=== PATIENT | female | born 1995 | race Two or more races ===

== ENCOUNTER 2017-10-23 03:20 | Emergency (ER) | payer SELFPAY ==
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
[2017-10-23 08:37] VITALS: BP 128/64
[2017-10-23 10:00] LABS: BACTERIA (WET MOUNT) 3+ BACTERIA SEEN; T.VAGINALIS (WET MOUNT) COULD NOT PERFORM; WBCS (WET MOUNT) 3+ WBCS SEEN; YEAST (WET MOUNT) NO YEAST SEEN
[2017-10-23 10:57] LABS: CHLAM PCR NOT DETECTED (NOT DETECT); GON PCR NOT DETECTED (NOT DETECT)
== END 2017-10-23 07:10 | disposition home or self-care (01) ==
LOC: ER 03:20
DX: T74.21XA Adult sexual abuse, confirmed, initial encounter (principal); Y07.59 Other non-family member, perpetrator of maltreatment and neglect; Y92.009 Unspecified place in unspecified non-institutional (private) residence as the place of occurrence of the external cause
CPT/HCPCS: 87210; 87491; 87591; 99285

== ENCOUNTER 2018-06-22 13:57 | Outpatient (CLI) | payer BC ==
[2018-06-22 14:56] LABS: BACTERIA (WET MOUNT) 4+ BACTERIA SEEN; RBCS (WET MOUNT) NO RBCS SEEN; T.VAGINALIS (WET MOUNT) NO TRICHOMONAS SEEN; WBCS (WET MOUNT) 4+ WBCS SEEN; YEAST (WET MOUNT) NO YEAST SEEN
[2018-06-22 15:07] LABS: APPEARANCE,URINE TURBID; BILIRUBIN,URINE NEGATIVE (NEGATIVE); COLOR,URINE YELLOW; GLUCOSE, URINE 150 mg/dL (NEGATIVE); KETONES,URINE NEGATIVE (NEGATIVE); LEUKOCYTE ESTERASE,URINE LARGE (NEGATIVE); NITRITE,URINE NEGATIVE (NEGATIVE); PROTEIN,URINE 100 mg/dL (NEGATIVE); URINE SPECIFIC GRAVITY 1.024; UROBILINOGEN,URINE NEGATIVE mg/dL (<2.0)
[2018-06-22 15:12] LABS: URINE AMPHETAMINES SCREEN NEGATIVE; URINE BARBITURATES SCREEN NEGATIVE; URINE BENZODIAZEPINES SCREEN NEGATIVE; URINE COCAINE SCREEN NEGATIVE; URINE MARIJUANA (THC) SCREEN NEGATIVE; URINE METHADONE SCREEN NEGATIVE; URINE PHENCYCLIDINE SCREEN NEGATIVE
[2018-06-22 16:21] LABS: CHLAM PCR DETECTED (NOT DETECT); GON PCR NOT DETECTED (NOT DETECT)
[2018-06-22] MEDS ORDERED: AZITHROMYCIN 250 MG TABLET PO ONE (16:48)
[2018-06-22] MEDS ORDERED: LIDOCAINE 1% INJ-PF (10 MG/ML) 30 ML SDV INJ ONE (16:48)
[2018-06-22] MEDS ORDERED: CEFTRIAXONE INJ 250 MG VIAL IM ONE (16:48)
--- NOTE | 2018-06-22 17:00 | RADIOLOGY REPORT (SQ) ---
EXAM DESCRIPTION: U/S OB 14+ TRNABD 1GES W/O DOP COMPLETED DATE/TIME: 06/22/2018 4:16 pm REASON FOR STUDY: vaginal bleeding COMPARISON: None. TECHNIQUE: Static and Dynamic grayscale imaging performed of gravid uterus using transabdominal appr oac. Additional selected color Doppler and spectral images recorded. All stored on PACS. LIMITATIONS: None. FINDINGS: FETUSES SEEN:1 EGA: 21 weeks 5 days Calculated using BPD,FL,HC,AC documented on images. No discrepancy with clinica l dates. NEREYDA: 10/28/2018 EFW: 430 grams PERCENTILE: Not calculated MARQUISE: Largest pocket 3.7 cm PLACENTA: Posterior fundal grade 1 PRESENTATION: Variable ANATOMY: HEART RATE: 132 beats per minute. FOUR CHAMBER HEART: Visualized. THREE VESSEL CORD: Yes. CORD INSERTION: Visualized. KIDNEYS AND BLADDER: Visualized. Appear normal. STOMACH: Visualized. Appears normal. SPINE: Normal as visualized. BRAIN AND LATERAL VENTRICLES: Visualized. Appear normal. OTHER: No other significant finding. MATERNAL ADNEXA: Maternal ovaries not visualized. CERVICAL LENGTH: 3.7 cm Closed. OTHER: No other significant finding. IMPRESSION: LIVING INTRAUTERINE . ESTIMATED GESTATIONAL AGE 21 weeks 5 days NO VISUALIZED ANOMALIES. Trimester of : Second trimester - 13 weeks 1 day to 27 weeks 6 days. TECHNICAL DOCUMENTATION: JOB ID: [id number] [employer]- All Rights Reserved Reading location - IP/workstation name: [email or web address]
[2018-06-22] MEDS ORDERED: CEFTRIAXONE INJ 1000 MG VIAL ONE (17:56)
[2018-06-22] MEDS ORDERED: LIDOCAINE 1% INJ-PF (10 MG/ML) 30 ML SDV ONE (17:57)
[2018-06-22] MEDS ORDERED: AZITHROMYCIN 250 MG TABLET ONE (17:57)
== END 2018-06-22 18:36 | disposition home or self-care (01) ==
LOC: LC 13:57
PROVIDERS: ATTEND Obstetrics & Gynecology
DX: O26.852 Spotting complicating pregnancy, second trimester (principal); Z3A.21 21 weeks gestation of pregnancy
CPT/HCPCS: 59025; 86900; 86901; 36415; 87210; 86850; 81001; 80307; 87491; 87591; 76805; J3490; J0696

== ENCOUNTER 2018-10-05 16:38 | Outpatient (CLI) | payer MEDICAID ==
[2018-10-05] MEDS ORDERED: ACETAMINOPHEN WITH CODEINE #3 TABLET PO ONE (17:21)
[2018-10-05] MEDS ORDERED: HYDROXYZINE PAMOATE 50 MG CAPSULE PO ONE (17:22)
[2018-10-05] MEDS ORDERED: ACETAMINOPHEN 325 MG TABLET ONE (17:25)
[2018-10-05] MEDS ORDERED: HYDROXYZINE PAMOATE 50 MG CAPSULE ONE (17:25)
[2018-10-05 17:56] LABS: APPEARANCE,URINE SLIGHTLY-CLOUDY; BILIRUBIN,URINE NEGATIVE (NEGATIVE); COLOR,URINE YELLOW; GLUCOSE, URINE 50 mg/dL (NEGATIVE); KETONES,URINE 20 mg/dL (NEGATIVE); LEUKOCYTE ESTERASE,URINE NEGATIVE (NEGATIVE); NITRITE,URINE NEGATIVE (NEGATIVE); PROTEIN,URINE 30 mg/dL (NEGATIVE); URINE SPECIFIC GRAVITY 1.025; UROBILINOGEN,URINE NEGATIVE mg/dL (<2.0)
[2018-10-05 18:37] LABS: URINE AMPHETAMINES SCREEN NEGATIVE; URINE BARBITURATES SCREEN NEGATIVE; URINE BENZODIAZEPINES SCREEN NEGATIVE; URINE COCAINE SCREEN NEGATIVE; URINE MARIJUANA (THC) SCREEN NEGATIVE; URINE METHADONE SCREEN NEGATIVE; URINE PHENCYCLIDINE SCREEN NEGATIVE
--- NOTE | 2018-10-05 20:06 | Non Stress Test Report ---
Non Stress Test Datetime Report Generated by CPN: 10/05/2018 20:06 DEMOGRAPHIC EGA NST: 36.5 INDICATION Indication for Study: Ordered by Provider MONITORING Monitor Explained: Monitor Explained; Test Explained; Patient Verbalized Understanding Time on Monitor: 10/05/2018 16:30 Time off Monitor: 10/05/2018 19:55 NST Duration: 205 NST INTERVENTIONS NST Interventions: PO Hydration Physician Notified NST: Dr. Gross BABY A: [id number] BABY A Movement : Present Contraction Frequency : 1-4 FHR Baseline : 130 Accelerations : 15X15 Decelerations : None Variability : Moderate 6-25bpm NST Review: Meets Criteria for Reactive NST NST Review and Verified By : Domingo Lau RN NST Results: Reactive NST REPORT Report Trigger: Send Report
== END 2018-10-05 20:30 | disposition home or self-care (01) ==
LOC: LC 16:38
PROVIDERS: ATTEND Obstetrics & Gynecology
PROC: 4A1HXCZ Monitoring of Products of Conception, Cardiac Rate, External Approach (ICD-10-PCS; principal; 2018-10-05)
DX: O47.03 False labor before 37 completed weeks of gestation, third trimester (principal); O99.283 Endocrine, nutritional and metabolic diseases complicating pregnancy, third trimester; E86.0 Dehydration; Z3A.36 36 weeks gestation of pregnancy
CPT/HCPCS: 59025; 81005; 80307; J3490 ×2

== ENCOUNTER 2018-11-05 23:02 | Inpatient (IN) | payer MEDICAID ==
[2018-11-05 23:26] LABS: APPEARANCE,URINE CLOUDY; BILIRUBIN,URINE NEGATIVE (NEGATIVE); COLOR,URINE RED; GLUCOSE, URINE NEGATIVE (NEGATIVE); KETONES,URINE NEGATIVE (NEGATIVE); LEUKOCYTE ESTERASE,URINE LARGE (NEGATIVE); NITRITE,URINE NEGATIVE (NEGATIVE); PROTEIN,URINE NEGATIVE (NEGATIVE); URINE SPECIFIC GRAVITY 1.013; UROBILINOGEN,URINE NEGATIVE mg/dL (<2.0)
[2018-11-05] MEDS ORDERED: RINGERS SOLUTION,LACTATED 1,000 ML IV PRN (23:28)
[2018-11-05 23:40] LABS: URINE AMPHETAMINES SCREEN NEGATIVE; URINE BARBITURATES SCREEN NEGATIVE; URINE BENZODIAZEPINES SCREEN NEGATIVE; URINE COCAINE SCREEN NEGATIVE; URINE MARIJUANA (THC) SCREEN NEGATIVE; URINE METHADONE SCREEN NEGATIVE
[2018-11-05 23:44] LABS: URINE PHENCYCLIDINE SCREEN NEGATIVE
[2018-11-05 23:52] LABS: ABSOLUTE BASOPHILS # (AUTO) 0.1 10^3/uL (0.0-0.2); ABSOLUTE EOSINOPHILS # (AUTO) 0.1 10^3/uL (0.0-0.6); ABSOLUTE LYMPHOCYTES (AUTO) 2.1 10^3/uL (0.5-4.7); ABSOLUTE MONOCYTES (AUTO) 0.7 10^3/uL (0.1-1.4); ABSOLUTE NEUT (AUTO) 6.8 10^3/uL (1.7-8.2); BASOPHILS % (AUTO) 0.8 % (0-2); EOSINOPHILS % (AUTO) 0.6 % (0-6); HEMATOCRIT 31.4 % (36.0-47.0); HEMOGLOBIN 10.4 g/dL (12.0-15.5); LYMPHOCYTES % (AUTO) 21.6 % (13-45); MEAN CORPUSCULAR HEMOGLOBIN 24.7 pg (27.0-33.4); MEAN CORPUSCULAR HGB CONC 33.2 g/dL (32.0-36.0); MEAN CORPUSCULAR VOLUME 74 fl (80-97); PLATELET COUNT 329 10^3/uL (150-450); RED BLOOD COUNT 4.23 10^6/uL (3.72-5.28); RED CELL DISTRIBUTION WIDTH 17.2 % (11.5-14.0); TOTAL CELLS COUNTED % (AUTO) 100 %; WHITE BLOOD COUNT 9.7 10^3/uL (4.0-10.5)
[2018-11-05] MEDS ORDERED: MISOPROSTOL 0.2 MG TABLET ONE (23:54)
[2018-11-05] MEDS ORDERED: OXYTOCIN 10 UNIT/ML VIAL ONE (23:54)
[2018-11-05] MEDS ORDERED: FENTANYL CITRATE INJ/PF 100 MCG/2 ML AMPUL ONE (23:55)
[2018-11-05] MEDS ORDERED: BUPIVACAINE HCL 0.25 % INJ/PF (2.5 MG/1 ML) 30 ML VIAL ONE (23:55)
[2018-11-05] MEDS ORDERED: PHENYLEPHRINE HCL INJ/PF 10 MG/1 ML SDV ONE (23:55)
[2018-11-05] MEDS ORDERED: OXYTOCIN/NORMAL SALINE 20 UNIT/1,000 ML RTUINJ ONE (23:55)
[2018-11-05] MEDS ORDERED: FENTANYL/BUPIVACAINE/NS/PF 300 MCG/150 ML RTUINJ EPI ONE (23:55)
[2018-11-05] MEDS ORDERED: LIDOCAINE 1% INJ-PF (10 MG/ML) 30 ML SDV ONE (23:55)
[2018-11-05] MEDS ORDERED: EPHEDRINE SULFATE INJ 50 MG/1 ML AMPULE ONE (23:55)
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
[2018-11-06] MEDS ORDERED: LIDOCAINE 2%/EPINEPHRINE INJ 20 ML VIAL ONE (08:07)
[2018-11-06] MEDS ORDERED: FENTANYL/BUPIVACAINE/NS/PF 300 MCG/150 ML RTUINJ EPI ONE (10:43)
[2018-11-06] MEDS ORDERED: DIPH/PERTUSS(ACELL)/TETANUS VAC/PF 0.5 ML SYR (>=10YO) IM PRN (13:21)
[2018-11-06] MEDS ORDERED: MEASLES,MUMPS&RUBELLA VACC/PF 0.5 ML VIAL SUBCUT PRN (13:21)
[2018-11-06] MEDS ORDERED: BENZOCAINE/MENTHOL AEROSOL SPRAY 56 ML TOP PRN (13:21)
[2018-11-06] MEDS ORDERED: OXYTOCIN/NORMAL SALINE 20 UNIT/1,000 ML RTUINJ IV PRN (13:21)
[2018-11-06] MEDS ORDERED: ZOLPIDEM TARTRATE 5 MG TABLET PO PRN (13:21)
[2018-11-06] MEDS ORDERED: DIBUCAINE 1% OINTMENT 56 GM TP PRN (13:21)
[2018-11-06] MEDS ORDERED: ACETAMINOPHEN WITH CODEINE #3 TABLET PO PRN ×2 (13:21)
[2018-11-06] MEDS ORDERED: IBUPROFEN 800 MG TABLET ONE (14:17)
[2018-11-06] MEDS ORDERED: CEFAZOLIN 2 GM/D5W RTU 2 GM/50 ML RTUPB IV ONE (14:17)
[2018-11-06] MEDS: IBUPROFEN 800 MG TABLET PO SCH ×2 (14:23→21:41)
[2018-11-06] MEDS ORDERED: CEFAZOLIN 2 GM/D5W RTU 2 GM/50 ML RTUPB IV SCH (15:00)
[2018-11-06] MEDS: FERROUS SULFATE 325 MG TABLET PO SCH (18:07)
[2018-11-06] MEDS: DOCUSATE SODIUM 100 MG CAPSULE PO SCH (18:07)
--- NOTE | 2018-11-06 19:21 | Delivery Summary ---
Del Sum A-C Datetime Report Generated by CPN: 11/06/2018 19:20 DELIVERY PERSONNEL DELIVERY PERSONNEL: [id number] Delivery Doctor:: Maye Monaco MD Labor and Delivery Nurse:: Shayy Bowers RN Labor and Delivery Nurse:: ROGER Levy Nursery Nurse:: ERIS Villanueva/OPERATING THEATRE TECHNICIAN: Janeen Blake, ST MATERNAL INFORMATION Delivery Anesthesia: Epidural Medications After Delivery: Pitocin Bolus-Please Comment; Pitocin Drip 20 Units/1000ml NSS; Cytotec 1000mcg Per Rectum/Vagina Estimated Blood Loss (ml): 100 Delivery QBL: 100 Maternal Complications: None; Prolonged Second Stage > 2 Hrs Provider Comments: of a viable male @ 1253 with an OA presentation; APGARS 8, 9; Al periurethral lacs LABOR SUMMARY EDC: 10/28/2018 00:00 No. Babies in Womb: 1 Attempted: Yes Labor Anesthesia: Epidural LABOR INFORMATION Reason for Induction: Not Applicable Onset of Labor: 11/05/2018 19:09 Complete Dilatation: 11/06/2018 12:45 Cervical Ripening Agents: Cytotec @ 1318 Oxytocin: N/A Group B Beta Strep: negative Antibiotics # of Doses: 0 Steroids Given: None Reason Steroids Not Administered: Not Applicable; Patient Refused MEMBRANES Membranes Rupture Method: Artificial Rupture of Membranes: 11/06/2018 02:09 Length of Rupture (hr): 10.73 Amniotic Fluid Color: Clear Amniotic Fluid Amount: Scant STAGES OF LABOR Stage 1 hr: 17 Stage 1 min: 36 Stage 2 hr: 0 Stage 2 min: 8 Stage 3 hr: 0 Stage 3 min: 6 Total Time in Labor hr: 17 Total Time in Labor min: 50 VAGINAL DELIVERY Episiotomy: None Laceration #1: Periurethral Laceration Extension #1: First Degree Laceration #2: Periurethral Laceration Extension #2: First Degree Laceration Repair: Yes Laceration Repair Note: Bilateral periurethral lacs repaired w/ 3-0 vicryl Sponge Count Correct: N/A Sharps Count Correct: N/A CSECTION DELIVERY Primary Indication: N/A Secondary Indication: N/A CSection Incidence: N/A Labor: N/A Elective: N/A CSection Incision: N/A BABY A INFORMATION Delivery Date/Time: 11/06/2018 12:53 Method of Delivery: Vaginal Born in Route : No : N/A Forceps: N/A Vacuum Extraction: N/A Shoulder Dystocia : No PRESENTATION/POSITION BABY A Presentation: Cephalic Cephalic Presentation: Vertex Vertex Position: Right Occipital Anterior Breech Presentation: N/A PLACENTA INFORMATION BABY A Placenta Delivery Time : 11/06/2018 12:59 Placenta Method of Delivery: Spontaneous Placenta Status: Delivered SCORES BABY A Heart Rate 1 min: >100 bpm Resp Effort 1 min: Slow, Irregular Reflex Irritability 1 min: Cough or Sneeze or Pulls Away Muscle Tone 1 min: Active Motion Color 1 min: Body [place], Extremities Blue Resuscitation Effort 1 min: Tactile Stimulation SCORE 1 MIN: 8 Heart Rate 5 min: >100 bpm Resp Effort 5 min: Good Cry Reflex Irritability 5 min: Cough or Sneeze or Pulls Away Muscle Tone 5 min: Active Motion Color 5 min: Body [place], Extremities Blue Resuscitation Effort 5 min: N/A SCORE 5 MIN: 9 Resuscitation Effort 10 min: N/A INFORMATION BABY A Gestational Age at Delivery: 41.2 Gestational Status: Late Term- 41- 41.6 Weeks Infant Outcome : Liveborn Infant Condition : Stable Sex: Male IDENTIFICATION BABY A ID Band Number: [id number] Mother's Name Verified: Yes Infant RN Verifying : BL ROULUND, RN/ S CAMP, RNC WEIGHT/LENGTH BABY A Birthweight (gm): 3496 Weight (lb): 7 Infant Weight (oz): 11 Infant Length (in): 20.50 Length (cm): 52.07 CORD INFORMATION BABY A No. Cord Vessels: 3 Nuchal Cord : N/A Cord Blood Taken: Yes-For Storage (Mom's Blood type +) Infant Suction: Mouth; Nose ASSESSMENT BABY A Complications: Multiple Late Decels; Multiple Variable Decels Physical Findings at Delivery: Within Normal Limits Respirations: Appears Normal Skin to Skin: Yes Skin to Skin Time (min): 70 Pharmaceutical Sales Representative/ALS Called : No Infant Care By: Dixie DURAN/BEVERLY BOWERS RN Transferred To: Remains with Mother BABY B INFORMATION : N/A SIGNATURES Signature: with User ID: [email or web address]
[2018-11-06] MEDS: CEFAZOLIN 1 GM/D5W RTU 1 GM/50 ML RTUPB IV SCH (21:41)
[2018-11-07] MEDS: CEFAZOLIN 1 GM/D5W RTU 1 GM/50 ML RTUPB IV SCH ×4 (00:37→18:35)
[2018-11-07] MEDS: IBUPROFEN 800 MG TABLET PO SCH ×3 (05:20→21:12)
[2018-11-07 07:41] LABS: HEMATOCRIT 29.8 % (36.0-47.0); HEMOGLOBIN 9.8 g/dL (12.0-15.5); MEAN CORPUSCULAR HEMOGLOBIN 24.6 pg (27.0-33.4); MEAN CORPUSCULAR HGB CONC 32.9 g/dL (32.0-36.0); MEAN CORPUSCULAR VOLUME 75 fl (80-97); PLATELET COUNT 244 10^3/uL (150-450); RED BLOOD COUNT 3.98 10^6/uL (3.72-5.28); RED CELL DISTRIBUTION WIDTH 17.3 % (11.5-14.0); WHITE BLOOD COUNT 16.3 10^3/uL (4.0-10.5)
[2018-11-07] MEDS: PRENATAL VITAMIN W DHA CAPSULE PO SCH (09:27)
[2018-11-07] MEDS: SENNOSIDES/DOCUSATE 8.6-50 MG 1 EACH TABLET PO SCH (09:27)
[2018-11-07] MEDS: DOCUSATE SODIUM 100 MG CAPSULE PO SCH ×2 (09:27→18:35)
[2018-11-07] MEDS: FERROUS SULFATE 325 MG TABLET PO SCH ×2 (09:27→18:35)
--- NOTE | 2018-11-07 11:00 | PDOC PROGRESS REPORT ---
Subjective-OB Progress Note for:: 11/07/18 Subjective: 23yo G2 now P1 s/p ppd1. Ambulating and voiding without difficulty. Visited by social science professor this am. Pt. Discussed prior hx in private with nurse and states she feels stable and does not feel like she would hurt herself, FOB or baby. Denies any concerns at this time. Pt. with several visitors during my rounds. Physical Exam (OB) Vital Signs: Temp Pulse Resp BP Pulse Ox 97.7 F 80 15 107/65 100 11/07/18 07:22 11/07/18 07:22 11/07/18 07:22 11/07/18 07:22 11/07/18 07:22 Intake & Output 11/06/18 11/07/18 11/08/18 06:59 06:59 06:59 Intake Total 550 480 Balance 550 480 Weight 72.1 kg - General General Appearance: Appears well In distress: None - PIH/Pre-Eclampsia DTR's: 2 + Clonus: Negative Headache: Absent Epigastric Pain: No Visual Changes: No - Episiotomy/Laceration Site Condition: Well Approximated - Lochia Lochia Amount: Small 10-25 ml Lochia Color: Rubra/Red - Abdomen Hernia Present: No Fundal Description: Firm, Midline Fundal Height: u/u - u/2 - Respiratory Respiratory Status: No respiratory distress - Abdominal Inspection: Normal - Extremities Upper extremity: Normal inspection Lower extremities: Normal inspection - Psychological Associated symptoms: Normal affect, Normal mood Objective-Diagnostic Laboratory: 11/07/18 07:22 11/07/18 07:22 WBC 16.3 H RBC 3.98 Hgb 9.8 L Hct 29.8 L MCV 75 L MCH 24.6 L MCHC 32.9 RDW 17.3 H Plt Count 244 Assessment and Plan(PN) - Assessment and Plan (1) Anxiety Is this a current diagnosis for this admission?: Yes Plan: Continue to monitor, visited by social science professor for plan of care going forward. (2) Laceration of periurethral tissue with delivery, delivered Is this a current diagnosis for this admission?: Yes Plan: continue to monitor for s/s of infection (3) Anemia complicating , third trimester Is this a current diagnosis for this admission?: Yes Plan: increase dietary iron and FeSO4 BID (4) Delivery normal Is this a current diagnosis for this admission?: Yes Plan: Routine pp care - Time Spent with Patient Time with patient: Less than 15 minutes Medications reviewed and adjusted accordingly: Yes - Disposition Anticipated Discharge: Home Within: within 24 hours
[2018-11-08] MEDS: IBUPROFEN 800 MG TABLET PO SCH ×2 (05:18→13:45)
[2018-11-08 08:00] VITALS: BP 96/55
--- NOTE | 2018-11-08 09:23 | PDOC DISCHARGE SUMMARY ---
Final Diagnosis Discharge Date: 11/08/18 - Final Diagnosis (1) Normal vaginal delivery Is this a current diagnosis for this admission?: Yes (2) Anemia complicating , third trimester Is this a current diagnosis for this admission?: Yes (3) Laceration of periurethral tissue with delivery, delivered Is this a current diagnosis for this admission?: Yes Discharge Data - Discharge Medication Prescriptions: Ibuprofen [Motrin 800 mg Tablet] 800 mg PO Q8HP PRN #60 tablet PRN Reason: Home Medications: Comb No.42/Folic Acid [Prena1 Chew Tablet] 1 tab PO DAILY 10/05/18 Ibuprofen [Motrin 800 mg Tablet] 800 mg PO Q8HP PRN #60 tablet 11/08/18 Procedures: NST Intrapartum Procedure(s): Spontaneous Vaginal Delivery Complication(s): Laceration-Periurethral - Diagnosis Test Laboratory: Temp Pulse Resp BP Pulse Ox 97.8 F 71 16 96/55 L 100 11/08/18 07:32 11/08/18 07:32 11/08/18 07:32 11/08/18 07:32 11/08/18 07:32 11/05/18 11/05/18 11/07/18 23:12 23:43 07:22 RBC 4.23 3.98 Hgb 10.4 L 9.8 L Hct 31.4 L 29.8 L Urine Opiates Screen NEGATIVE - Discharge information/Instructions Discharge Activity: Balance Activity w/Rest, Pelvic Rest Discharge Diet: Regular Disposition: HOME, SELF-CARE Follow up with: [facility] in: 4, Weeks
[2018-11-08] MEDS: SENNOSIDES/DOCUSATE 8.6-50 MG 1 EACH TABLET PO SCH (09:35)
[2018-11-08] MEDS: FERROUS SULFATE 325 MG TABLET PO SCH (09:35)
[2018-11-08] MEDS: PRENATAL VITAMIN W DHA CAPSULE PO SCH (09:35)
[2018-11-08] MEDS: DOCUSATE SODIUM 100 MG CAPSULE PO SCH (09:35)
== END 2018-11-08 16:50 | disposition home or self-care (01) | DRG 807 ==
LOC: LC 23:02 → LR 23:30 → 2S 11-06 17:07
PROVIDERS: ADMIT Obstetrics & Gynecology; ATTEND Obstetrics & Gynecology
PROC: 4A1HXCZ Monitoring of Products of Conception, Cardiac Rate, External Approach (ICD-10-PCS; 2018-11-05)
PROC: 10E0XZZ Delivery of Products of Conception, External Approach (ICD-10-PCS; principal; 2018-11-06)
PROC: 0UQMXZZ Repair Vulva, External Approach (ICD-10-PCS; 2018-11-06)
PROC: 10907ZC Drainage of Amniotic Fluid, Therapeutic from Products of Conception, Via Natural or Artificial Opening (ICD-10-PCS; 2018-11-06)
PROC: 10H073Z Insertion of Monitoring Electrode into Products of Conception, Via Natural or Artificial Opening (ICD-10-PCS; 2018-11-06)
PROC: 4A1H7CZ Monitoring of Products of Conception, Cardiac Rate, Via Natural or Artificial Opening (ICD-10-PCS; 2018-11-06)
PROC: 3E0234Z Introduction of Serum, Toxoid and Vaccine into Muscle, Percutaneous Approach (ICD-10-PCS; 2018-11-08)
DX: O48.0 Post-term pregnancy (principal); Z37.0 Single live birth; O99.02 Anemia complicating childbirth; D64.9 Anemia, unspecified; O71.82 Other specified trauma to perineum and vulva; O99.344 Other mental disorders complicating childbirth; F41.9 Anxiety disorder, unspecified; Z87.891 Personal history of nicotine dependence; Z3A.41 41 weeks gestation of pregnancy; Z23 Encounter for immunization
CPT/HCPCS: 36415; 80307; 81005; 85025; 85027; 86592; 86850; 86900; 86901; 88307; 90715; 94760; J0690; J2370; J2590; J3010; J3490

== ENCOUNTER → 2019-09-13 | Outpatient (CLI) | payer MEDICAID ==
--- NOTE | 2019-09-13 15:56 | RADIOLOGY REPORT (SQ) ---
EXAM DESCRIPTION: U/S [id number] TRNABD 1GES W/ODOP IMAGES COMPLETED DATE/TIME: 09/13/2019 2:41 pm REASON FOR STUDY: Z34.81 ENCOUNTER FOR SUPRVSN OF NORMAL , FIRST TRIMESTER Z34.81 ENCOUNTE R FOR SUPRVSN OF NORMAL , FIRST TRIM COMPARISON: 06/22/2018 TECHNIQUE: Transvaginal static and realtime grayscale images acquired of the pelvis. Additional dale cted spectral and color Doppler images recorded. All images stored on PACs. bHCG: Not available. CLINICAL DATES: LMP unknown, NEREYDA 04/20/2020, EGA 8 weeks 4 days LIMITATIONS: None. FINDINGS: FETUS: Single Living intrauterine . ULTRASOUND EGA: 9 weeks 5 days ULTRASOUND NEREYDA: 04/12/2020 EFW: Not applicable less than 20 weeks. CRL: 2.8 cm FHR: 171 beats per minute. SURVEY: Too early to assess. AMNIOTIC FLUID: Adequate amount. PLACENTA: Not yet developed due to early gestation. SUBCHORIONIC BLEED: No. SIZE OF BLEED: Not applicable. UTERUS: Uterus is unremarkable in size measuring 11.8 x 9.5 x 7.6 cm. CERVICAL LENGTH: 2.1 cm Closed. RIGHT ADNEXA: Normal ovary with normal vascular flow. Ovary measures 3.3 x 2.3 x 2.1 cm No adnexal free fluid. No adnexal masses. LEFT ADNEXA: Normal ovary with normal vascular flow. Ovary measures 3.4 x 3.0 x 3.0 cm No adnexal free fluid. No adnexal masses. FREE FLUID: None. OTHER: No other significant finding. IMPRESSION: Living intrauterine with estimated ultrasound gestational age of 9 weeks and 5 days. Trimester of : First trimester - 0 to 13 weeks. TECHNICAL DOCUMENTATION: JOB ID: [id number] 2010 [employer]- All Rights Reserved rev-09/24 Reading location - IP/workstation name: [email or web address]
== END ==
LOC: RAD 14:00
PROVIDERS: ATTEND Midwife
DX: Z34.81 Encounter for supervision of other normal pregnancy, first trimester (principal); Z3A.09 9 weeks gestation of pregnancy
CPT/HCPCS: 76801

== ENCOUNTER 2020-03-23 21:22 | Outpatient (CLI) | payer MEDICAID ==
[2020-03-23 22:03] LABS: APPEARANCE,URINE CLEAR; BILIRUBIN,URINE NEGATIVE (NEGATIVE); COLOR,URINE YELLOW; GLUCOSE, URINE NEGATIVE (NEGATIVE); KETONES,URINE TRACE mg/dL (NEGATIVE); LEUKOCYTE ESTERASE,URINE SMALL (NEGATIVE); NITRITE,URINE NEGATIVE (NEGATIVE); PROTEIN,URINE 30 mg/dL (NEGATIVE); URINE SPECIFIC GRAVITY 1.027; UROBILINOGEN,URINE NEGATIVE mg/dL (<2.0)
[2020-03-23 22:21] LABS: URINE AMPHETAMINES SCREEN NEGATIVE; URINE BARBITURATES SCREEN NEGATIVE; URINE BENZODIAZEPINES SCREEN NEGATIVE; URINE COCAINE SCREEN NEGATIVE; URINE MARIJUANA (THC) SCREEN NEGATIVE; URINE METHADONE SCREEN NEGATIVE; URINE PHENCYCLIDINE SCREEN NEGATIVE
[2020-03-23] MEDS ORDERED: FAMOTIDINE 20 MG TABLET ONE (23:57)
[2020-03-23] MEDS ORDERED: HYDROXYZINE PAMOATE 50 MG CAPSULE ONE (23:57)
[2020-03-24] MEDS ORDERED: FAMOTIDINE 20 MG TABLET PO ONE (00:30)
[2020-03-24] MEDS ORDERED: HYDROXYZINE PAMOATE 50 MG CAPSULE PO ONE (00:30)
--- NOTE | 2020-03-24 02:37 | Non Stress Test Report ---
Non Stress Test Datetime Report Generated by CPN: 03/24/2020 02:36 DEMOGRAPHIC Test Number: 1 EGA NST: 37.1 INDICATION Indication for Study (NST) Other: labor check VITAL SIGNS Temperature - NST: 98.3 Pulse - NST: 89 RESP - NST: 18 NBPSYS NST: 100 NBPDIA NST: 62 URINE RESULTS Urine Protein, NST: Negative Urine Ketones - NST: Positive Urine Glucose - NST: Negative Urine Blood - NST: Negative MONITORING Monitor Explained: Monitor Explained; Test Explained; Patient Verbalized Understanding Time on Monitor: 03/23/2020 21:42 Time off Monitor: 03/24/2020 01:36 NST Duration: 234 NST INTERVENTIONS NST Interventions: PO Hydration Physician Notified NST: Dr. Lu BABY A: [id number] BABY A Movement : Present Contraction Frequency : 2-5 FHR Baseline : 130 Accelerations : 15X15 Decelerations : None Variability : Moderate 6-25bpm NST Review: Meets Criteria for Reactive NST NST Review and Verified By : KXimena Moodyco, RN NST Results: Reactive NST REPORT Report Trigger: Send Report
== END 2020-03-24 01:48 | disposition home or self-care (01) ==
LOC: LC 21:22
PROVIDERS: ATTEND Obstetrics & Gynecology
DX: O47.1 False labor at or after 37 completed weeks of gestation (principal); Z3A.37 37 weeks gestation of pregnancy; Z87.891 Personal history of nicotine dependence
CPT/HCPCS: 59025; 81005; 80307; J3490 ×2

== ENCOUNTER 2020-04-05 22:28 | Inpatient (IN) | payer MEDICAID ==
[2020-04-05 22:52] LABS: APPEARANCE,URINE CLEAR; BILIRUBIN,URINE NEGATIVE (NEGATIVE); COLOR,URINE STRAW; GLUCOSE, URINE NEGATIVE (NEGATIVE); KETONES,URINE NEGATIVE (NEGATIVE); LEUKOCYTE ESTERASE,URINE LARGE (NEGATIVE); NITRITE,URINE NEGATIVE (NEGATIVE); PROTEIN,URINE NEGATIVE (NEGATIVE); URINE SPECIFIC GRAVITY 1.004; UROBILINOGEN,URINE NEGATIVE mg/dL (<2.0)
[2020-04-05 23:14] LABS: URINE AMPHETAMINES SCREEN NEGATIVE; URINE BARBITURATES SCREEN NEGATIVE; URINE BENZODIAZEPINES SCREEN NEGATIVE; URINE COCAINE SCREEN NEGATIVE; URINE MARIJUANA (THC) SCREEN NEGATIVE; URINE METHADONE SCREEN NEGATIVE; URINE PHENCYCLIDINE SCREEN NEGATIVE
[2020-04-06] MEDS ORDERED: PENICILLIN G-K 5 MILLION UNIT VIAL ONE ×2 (01:20→05:28)
[2020-04-06] MEDS ORDERED: PENICILLIN G POTASSIUM 5,000,000 UNIT in DEXTROSE 5%-WATER 100 ML IV ONE ×2 (01:23→02:30)
[2020-04-06] MEDS ORDERED: RINGERS SOLUTION,LACTATED 1,000 ML IV ONE (02:30)
[2020-04-06] MEDS ORDERED: RINGERS SOLUTION,LACTATED 1,000 ML IV PRN (02:30)
[2020-04-06] MEDS ORDERED: OXYTOCIN 10 UNIT/ML VIAL ONE (02:43)
[2020-04-06] MEDS ORDERED: OXYTOCIN/0.9 % SODIUM CHLORIDE 30 UNIT/500 ML RTUINJ ONE (02:44)
[2020-04-06] MEDS ORDERED: MISOPROSTOL 0.2 MG TABLET ONE (02:44)
[2020-04-06] MEDS ORDERED: LIDOCAINE 1% INJ-PF (10 MG/ML) 30 ML SDV ONE (02:44)
[2020-04-06 03:08] LABS: ABSOLUTE EOSINOPHILS # (AUTO) 0.1 10^3/uL (0.0-0.6); ABSOLUTE LYMPHOCYTES (AUTO) 1.9 10^3/uL (0.5-4.7); ABSOLUTE MONOCYTES (AUTO) 0.6 10^3/uL (0.1-1.4); ABSOLUTE NEUT (AUTO) 8.2 10^3/uL (1.7-8.2); BASOPHILS % (AUTO) 0.3 % (0-2); EOSINOPHILS % (AUTO) 0.6 % (0-6); HEMATOCRIT 32.7 % (36.0-47.0); HEMOGLOBIN 10.8 g/dL (12.0-15.5); LYMPHOCYTES % (AUTO) 17.4 % (13-45); MEAN CORPUSCULAR HEMOGLOBIN 23.2 pg (27.0-33.4); MEAN CORPUSCULAR HGB CONC 32.9 g/dL (32.0-36.0); MEAN CORPUSCULAR VOLUME 71 fl (80-97); MONOCYTES % (AUTO) 5.7 % (3-13); PLATELET COUNT 295 10^3/uL (150-450); RED BLOOD COUNT 4.63 10^6/uL (3.72-5.28); TOTAL CELLS COUNTED % (AUTO) 100 %; WHITE BLOOD COUNT 10.8 10^3/uL (4.0-10.5)
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
[2020-04-06] MEDS ORDERED: EPHEDRINE SULFATE INJ 50 MG/1 ML AMPULE ONE (03:25)
[2020-04-06] MEDS ORDERED: FENTANYL/BUPIVACAINE/NS/PF 300 MCG/150 ML RTUINJ EPI ONE (03:26)
[2020-04-06] MEDS ORDERED: ROPIVACAINE HCL 0.2% INJ/PF (2 MG/ML) 20 ML SDV ONE (03:26)
[2020-04-06] MEDS ORDERED: OXYTOCIN/0.9 % SODIUM CHLORIDE 30 UNIT/500 ML RTUINJ IV PRN (10:23)
[2020-04-06] MEDS ORDERED: GLYCERIN/WITCH HAZEL LEAF 1 EACH MED..WIPE TP PRN (10:23)
[2020-04-06] MEDS ORDERED: PSEUDOEPHEDRINE HCL 30 MG TABLET PO PRN (10:23)
[2020-04-06] MEDS ORDERED: BENZOCAINE/MENTHOL AEROSOL SPRAY 56 ML TOP PRN (10:23)
[2020-04-06] MEDS ORDERED: MAGNESIUM HYDROXIDE SUSP 30 ML UDCUP PO PRN (10:23)
[2020-04-06] MEDS ORDERED: PROMETHAZINE HCL 25 MG SUPP.RECT PR PRN (10:23)
[2020-04-06] MEDS ORDERED: DIBUCAINE 1% OINTMENT 28 GM TP PRN (10:23)
[2020-04-06] MEDS ORDERED: ZOLPIDEM TARTRATE 5 MG TABLET PO PRN (10:23)
[2020-04-06] MEDS ORDERED: ACETAMINOPHEN WITH CODEINE #3 TABLET PO PRN ×2 (10:23)
[2020-04-06] MEDS ORDERED: NA PHOS,M-B/NA PHOS,DI-BA (ADULT) 133 ML ENEMA PR PRN (10:23)
[2020-04-06] MEDS ORDERED: PROMETHAZINE HCL 25 MG TABLET PO PRN (10:23)
[2020-04-06] MEDS ORDERED: DIPHENHYDRAMINE HCL 25 MG CAPSULE PO PRN (10:23)
[2020-04-06] MEDS ORDERED: PROMETHAZINE HCL INJ 25 MG/1 ML VIAL IV PRN (10:23)
[2020-04-06] MEDS ORDERED: ACETAMINOPHEN 650 MG SUPP.RECT PR PRN (10:23)
[2020-04-06] MEDS ORDERED: MEASLES,MUMPS&RUBELLA VACC/PF 0.5 ML VIAL SUBCUT PRN (10:23)
[2020-04-06] MEDS ORDERED: DIPH/PERTUSS(ACELL)/TETANUS VAC/PF 0.5 ML SYR (>=10YO) IM PRN (10:23)
[2020-04-06] MEDS ORDERED: IBUPROFEN 800 MG TABLET ONE (10:25)
--- NOTE | 2020-04-06 12:33 | Birth Certificate Data ---
Cert Data Datetime Report Generated by CPN: 04/06/2020 12:32 CERTIFICATE DATA Delivery Provider: Chan Gross MD (03/23/2020 21:35:Lizabeth Becerra RN) 47a. Care: Yes (03/23/2020 21:35:Bina Rodriguez RN) 47b. Date of First Visit: 08/17/2019 00:00 (03/23/2020 21:35:Feli Campbell RN) 47c. Date of Last Visit: 03/18/2020 00:00 (03/23/2020 21:35:Feli Campbell RN) 47d. Number of Visits: 12 (03/23/2020 21:35:Feli Campbell RN) 48a. Number of Prev Live Births: 1 (03/23/2020 21:35:Bina Rodriguez RN) 48b. Now Livin (03/23/2020 21:35:Bina Rodriguez RN) 48c. Live Births Now : 0 (03/23/2020 21:35:QS system process) 48d. Date of Last Live : 11/06/2018 00:00 (03/23/2020 21:35:Bina Rodriguez RN) 48e. Losses: 2 (03/23/2020 21:35:Bina Rodriguez RN) RISK FACTORS IN THIS 49a. Diabetes: No (03/23/2020 21:35:Bina Rodriguez RN) 49b. Hypertension: No (03/23/2020 21:35:Bina Rodriguez RN) 49c. Previous Births: 0 (03/23/2020 21:35:Bina Rodriguez RN) 49d. Stillborns: No (03/23/2020 21:35:Bina Rodriguez RN) 49d. IUGR: No (03/23/2020 21:35:Bina Rodriguez RN) 49e. Infertility Treatment: No (03/23/2020 21:35:Bina Rodriguez RN) 49f. Previous Cesareans: 0 (03/23/2020 21:35:Bina Rodriguez RN) Mother's Height 50b. Height Inches: 66 (04/05/2020 22:40:QS system process) Mother's Weight 51a. Pre- Weight (lbs): 130 (03/23/2020 21:35:Feli Campbell RN) 51b. Weight at Delivery (lbs): 165 (04/05/2020 22:40:QS system process) 52. Dt Last Normal Menses Began: 07/15/2019 00:00 (03/23/2020 21:35:Feli Campbell RN) Infections Present/Treated 53a. Gonorrhea: No (03/23/2020 21:35:Bina Rodriguez RN) Results this Hospital Visit : Negative (03/23/2020 21:35:Feli Campbell RN) 53b. Syphilis: No (03/23/2020 21:35:Bina Rodriguez RN) 53c. Chlamydia: Yes (03/23/2020 21:35:Feli Campbell RN) Results this Hospital Visit: Negative (03/23/2020 21:35:Feil Campbell RN) 53d. Hepatitis B: No (03/23/2020 21:35:Bina Rodriguez RN) Results this Hospital Visit: Negative (03/23/2020 21:35:Feli Campbell RN) 53e. Hepatitis C: Negative (03/23/2020 21:35:Feli Campbell RN) 53h. Mother Tested for HBsAG: Yes (03/23/2020 21:35:Feli Campbell RN) 53i. Date Tested: 10/05/2019 00:00 (03/23/2020 21:35:Feli Campbell RN) 53j. Test Result: Negative (03/23/2020 21:35:Feli Campbell RN) Obstetric Procedures 54a, b, c. Obstetric Procedures: Ultrasound; NST (03/23/2020 21:35:Bina Rodriguez RN) Cigarette Smoking Cigarette Smoking: Former Smoker. [id number] (03/23/2020 21:35:Feli Campbell RN) 55a. 3 Months Before Preg - Ci (03/23/2020 21:35:Bina Rodriguez RN) 55b. 1st Trimester of Preg- Ci (03/23/2020 21:35:Bina Rodriguez RN) 55c. 2nd Trimester of Preg- Ci (03/23/2020 21:35:Bina Rodriguez RN) 55d. 3rd Trimester of Preg- Ci (03/23/2020 21:35:Bina Rodriguez RN) Onset of Labor 56a. PROM >12 Hrs: 0.98 (03/23/2020 21:35:QS system process) 56b. Precipitous Labor <3 Hrs: 8 (03/23/2020 21:35:QS system process) 56c. Prolonged Labor > 20 Hrs: 8 (03/23/2020 21:35:QS system process) 57a. Induction of Labor: N/A (03/23/2020 21:35:Lizabeth Becerra RN) 57c. Non-Vertex Presentation A: Vertex (03/23/2020 21:35:Lisha Rodriguez RN) 57d. Steroids - Lung Mat: None (03/23/2020 21:35:Lizabeth Becerra RN) 57d. Steroids - Lung Mat: Not Applicable (03/23/2020 21:35:Lizabeth Becerra RN) 57e. Antibiotics During Labor: 04/06/2020 05:46 (03/23/2020 21:35:Lizabeth Becerra RN) 57g. Moderate/Heavy Meconium: Clear (04/06/2020 09:10:Lizabeth Becerra RN) 57h. Intolerance of Labor: N/A (03/23/2020 21:35:Lisha Rodriguez RN) : N/A (03/23/2020 21:35:Lisha Rodriguez RN) 57i. Epidural/Spinal Anesthesia: Epidural (03/23/2020 21:35:Lizabeth Becerra RN) Method of Delivery 58a. Forceps - Unsuccessful A: N/A (03/23/2020 21:35:Lizabeth Becerra RN) 58b. Vacuum - Unsuccessful A: N/A (03/23/2020 21:35:Lizabeth Becerra RN) 58c. Presentation at 58c. Presentation at - A : Vertex (03/23/2020 21:35:Lisha Rodriguez RN) 58c. Presentation at - A : N/A (03/23/2020 21:35:Lizabeth Becerra RN) 58c. Presentation at - A : Cephalic (04/06/2020 03:31:Caroline Craig RN) Final Route and Method of Del 58d. Baby A Route/Delivery: Vaginal (Annotations: Data stored by [facility] on behalf of user) (03/23/2020 21:35:Lizabeth Becerra RN) 58e. Trial of Labor Attempted: No (03/23/2020 21:35:Lizabeth Becerra RN) 58e. Trial of Labor Attempted A: N/A (03/23/2020 21:35:Lizabeth Becerra RN) 58e. Trial of Labor Attempted B: N/A (03/23/2020 21:35:Lizabeth Becerra RN) Maternal Morbidity 59b. 3rd or 4th Degree Lacs: None (03/23/2020 21:35:Lisha Michael, RN) Birthweight Baby A: 4318 (03/23/2020 21:35:Bindu Wright RN) 60a. Pounds : 9 (03/23/2020 21:35:QS system process) 60b. Ounces: 8 (03/23/2020 21:35:QS system process) 61. GA at Delivery Baby A: 39.1 (03/23/2020 21:35:Lizabeth Becerra RN) : Full Term- 39- 40.6 Weeks (03/23/2020 21:35:QS system process) 62a. 5 Minute Baby A: 9 (03/23/2020 21:35:QS system process)
--- NOTE | 2020-04-06 12:33 | Delivery Summary ---
Del Sum A-C Datetime Report Generated by CPN: 04/06/2020 12:32 DELIVERY PERSONNEL DELIVERY PERSONNEL: [id number] Delivery Doctor:: Chan Gross MD Labor and Delivery Nurse:: Lizabeth Becerra RN Nursery Nurse:: page silva RN Sheet Metal Duct Installer Helper/SKOOG MACHINE OPERATOR: Bernice Crawford, BIOCHEMISTRY TEACHER MATERNAL INFORMATION Delivery Anesthesia: Epidural Medications After Delivery: Pitocin 30 Units in 500ml NS/D5W Estimated Blood Loss (ml): 250 Delivery QBL: 275 Maternal Complications: None LABOR SUMMARY EDC: 04/12/2020 00:00 No. Babies in Womb: 1 Attempted: No Labor Anesthesia: Epidural LABOR INFORMATION Reason for Induction: Not Applicable Onset of Labor: 04/06/2020 01:20 Complete Dilatation: 04/06/2020 09:55 Oxytocin: N/A Group B Beta Strep: positive Antibiotics # of Doses: 2 Antibiotics Time of Last Dose: 04/06/2020 05:46 Name of Antibiotic Given: PCN Steroids Given: None Reason Steroids Not Administered: Not Applicable MEMBRANES Membranes Rupture Method: Spontaneous Rupture of Membranes: 04/06/2020 09:10 Length of Rupture (hr): 0.98 Amniotic Fluid Color: Clear Amniotic Fluid Amount: Moderate Amniotic Fluid Odor: Normal STAGES OF LABOR Stage 1 hr: 8 Stage 1 min: 35 Stage 2 hr: 0 Stage 2 min: 14 Stage 3 hr: 0 Stage 3 min: 8 Total Time in Labor hr: 8 Total Time in Labor min: 57 VAGINAL DELIVERY Episiotomy: None Laceration #1: None Laceration Extension #1: N/A Laceration Repair: Not Applicable Sponge Count Correct: N/A Sharps Count Correct: N/A CSECTION DELIVERY Primary Indication: N/A Secondary Indication: N/A CSection Incidence: N/A Labor: N/A Elective: N/A CSection Incision: N/A BABY A INFORMATION Delivery Date/Time: 04/06/2020 10:09 Method of Delivery: Vaginal (Annotations: Data stored by CPN on behalf of user) Nurse Controlled Delivery: No Born in Route : No (Annotations: Data stored by CPN on behalf of user) : N/A Forceps: N/A Vacuum Extraction: N/A Shoulder Dystocia : No PRESENTATION/POSITION BABY A Presentation: Cephalic Cephalic Presentation: Vertex Vertex Position: Right Occipital Anterior Breech Presentation: N/A PLACENTA INFORMATION BABY A Placenta Delivery Time : 04/06/2020 10:17 Placenta Method of Delivery: Spontaneous (Annotations: Data stored by [facility] on behalf of user) Placenta Status: Delivered SCORES BABY A Heart Rate 1 min: >100 bpm Resp Effort 1 min: Good Cry Reflex Irritability 1 min: Cough or Sneeze or Pulls Away Muscle Tone 1 min: Active Motion Color 1 min: Blue/Pale Resuscitation Effort 1 min: Tactile Stimulation SCORE 1 MIN: 8 Heart Rate 5 min: >100 bpm Resp Effort 5 min: Good Cry Reflex Irritability 5 min: Cough or Sneeze or Pulls Away Muscle Tone 5 min: Active Motion Color 5 min: Body [place], Extremities Blue Resuscitation Effort 5 min: Tactile Stimulation SCORE 5 MIN: 9 INFORMATION BABY A Gestational Age at Delivery: 39.1 Gestational Status: Full Term- 39- 40.6 Weeks Outcome : Liveborn Condition : Stable Sex: Male IDENTIFICATION BABY A Verification Date/Time: 04/06/2020 10:27 ID Band Number: [id number] Mother's Name Verified: Yes Infant RN Verifying : Wilder Silva RN ; MXimena Randall, RNC-OB WEIGHT/LENGTH BABY A Infant Birthweight (gm): 4318 Weight (lb): 9 Weight (oz): 8 Length (in): 21.50 Length (cm): 54.61 CORD INFORMATION BABY A No. Cord Vessels: 3 (Annotations: Data stored by [facility] on behalf of user) Nuchal Cord : N/A Cord Blood Taken: Yes-For Storage (Mom's Blood type +) Suction: None ASSESSMENT BABY A Infant Complications: None Physical Findings- Other: facial bruising Respirations: Appears Normal Skin to Skin: Yes Skin to Skin Time (min): 30 Lead Material Handler/ALS Called : No Care By: iWlder PelletierCampbell Hall RN Transferred To: Remains with Mother BABY B INFORMATION : N/A SIGNATURES Signature: with User ID: [email or web address]
[2020-04-06] MEDS ORDERED: IBUPROFEN 800 MG TABLET PO SCH (14:00)
[2020-04-06] MEDS: DOCUSATE SODIUM 100 MG CAPSULE PO SCH (18:15)
[2020-04-06] MEDS: IBUPROFEN 800 MG TABLET PO SCH (18:16)
[2020-04-06] MEDS: FERROUS SULFATE 325 MG TABLET PO SCH (18:16)
[2020-04-06] MEDS: FAMOTIDINE 20 MG TABLET PO SCH (21:52)
[2020-04-07] MEDS: IBUPROFEN 800 MG TABLET PO SCH ×3 (02:17→17:18)
[2020-04-07 07:28] LABS: HEMATOCRIT 25.8 % (36.0-47.0); MEAN CORPUSCULAR HEMOGLOBIN 23.2 pg (27.0-33.4); MEAN CORPUSCULAR HGB CONC 32.3 g/dL (32.0-36.0); MEAN CORPUSCULAR VOLUME 72 fl (80-97); PLATELET COUNT 217 10^3/uL (150-450); RED CELL DISTRIBUTION WIDTH 18.5 % (11.5-14.0)
[2020-04-07 07:32] LABS: HEMOGLOBIN 8.3 g/dL (12.0-15.5)
[2020-04-07] MEDS: DOCUSATE SODIUM 100 MG CAPSULE PO SCH ×2 (11:34→17:18)
[2020-04-07] MEDS: FERROUS SULFATE 325 MG TABLET PO SCH ×2 (11:34→17:18)
[2020-04-07] MEDS: SENNOSIDES/DOCUSATE 8.6-50 MG 1 EACH TABLET PO SCH (11:35)
[2020-04-07] MEDS: PRENATAL VITAMIN W DHA CAPSULE PO SCH (11:35)
[2020-04-07] MEDS: FAMOTIDINE 20 MG TABLET PO SCH ×2 (11:35→22:43)
--- NOTE | 2020-04-07 12:25 | PDOC PROGRESS REPORT ---
Subjective-OB Progress Note for:: 04/07/20 Subjective: Pt doing well, no concerns. She reports light bleeding, reg diet and voiding w/o difficulty. Physical Exam (OB) Vital Signs: Temp Pulse Resp BP Pulse Ox 97.8 F 73 16 99/65 L 98 04/07/20 08:25 04/07/20 07:43 04/07/20 07:43 04/07/20 07:43 04/07/20 07:43 Intake & Output 04/06/20 04/07/20 04/08/20 06:59 06:59 06:59 Output Total 100 Balance -100 Weight 74.6 kg - PIH/Pre-Eclampsia DTR's: 2 + Clonus: Negative Headache: Absent Epigastric Pain: No Visual Changes: No - Maternal Morbidity 59. Maternal Morbidity (serious complications experinced by the mother associated with labor and delivery: None of the above - Lochia Lochia Amount: Scant < 10 ml Lochia Color: Rubra/Red - Abdomen Description: Soft, Round Hernia Present: No Fundal Description: Firm, Midline Fundal Height: u/u - u/2 Objective-Diagnostic Laboratory: 04/07/20 06:37 04/07/20 06:37 WBC 14.0 H RBC 3.60 L Hgb 8.3 L D Hct 25.8 L MCV 72 L MCH 23.2 L MCHC 32.3 RDW 18.5 H Plt Count 217 Assessment and Plan(PN) - Assessment and Plan (1) (spontaneous vaginal delivery) Is this a current diagnosis for this admission?: Yes (2) Active labor at term Is this a current diagnosis for this admission?: Yes (3) Carrier of group B Streptococcus Is this a current diagnosis for this admission?: Yes - Time Spent with Patient Time with patient: Less than 15 minutes Medications reviewed and adjusted accordingly: Yes - Disposition Anticipated Discharge Disposition: Home, Self Care Anticipated Discharge Timeframe: within 24 hours
[2020-04-08] MEDS: IBUPROFEN 800 MG TABLET PO SCH ×2 (01:41→11:15)
[2020-04-08 08:52] VITALS: BP 110/65
--- NOTE | 2020-04-08 10:41 | PDOC DISCHARGE SUMMARY ---
Impression - Admit/DC Date/PCP Admission Date/Primary Care Provider: 04/06/20 02:46 SHIVANI PARISH MD Discharge Date: 04/08/20 - PP Day #2, doing well, no complaints, UOB, voiding - Discharge Diagnosis (1) Anemia, iron deficiency Is this a current diagnosis for this admission?: Yes (2) Active labor at term Is this a current diagnosis for this admission?: Yes (3) Carrier of group B Streptococcus Is this a current diagnosis for this admission?: Yes (4) (spontaneous vaginal delivery) Is this a current diagnosis for this admission?: Yes - Additional Information Resuscitation Status: Full Code Discharge Diet: As Tolerated, Regular Discharge Activity: Activity As Tolerated, No Lifting Over 10 Pounds, Pelvic Rest Referrals: SHIVANI PARISH MD [Primary Care Provider] - Prescriptions: Ferrous Sulfate [Feosol 325 mg Tablet] 325 mg PO BID #60 tablet Ibuprofen [Motrin 800 mg Tablet] 800 mg PO Q8A #60 tablet Home Medications: Comb No.42/Folic Acid [Prena1 Chew Tablet] 1 tab PO DAILY 10/05/18 Ferrous Sulfate [Feosol 325 mg Tablet] 325 mg PO BID #60 tablet 04/08/20 Ibuprofen [Motrin 800 mg Tablet] 800 mg PO Q8A #60 tablet 04/08/20 HPI Reason(s) for Admission: Onset of Labor Procedures: Ultrasound Intrapartum Procedure(s): Spontaneous Vaginal Delivery Hospital Course 59. Maternal Morbidity (serious complications experinced by the mother associated with labor and delivery: None of the above Results Laboratory Results: WBC 14.0 10^3/uL (4.0-10.5) H 04/07/20 06:37 RBC 3.60 10^6/uL (3.72-5.28) L 04/07/20 06:37 Hgb 8.3 g/dL (12.0-15.5) L D 04/07/20 06:37 Hct 25.8 % (36.0-47.0) L 04/07/20 06:37 MCV 72 fl (80-97) L 04/07/20 06:37 MCH 23.2 pg (27.0-33.4) L 04/07/20 06:37 MCHC 32.3 g/dL (32.0-36.0) 04/07/20 06:37 RDW 18.5 % (11.5-14.0) H 04/07/20 06:37 Plt Count 217 10^3/uL (150-450) 04/07/20 06:37 Lymph % (Auto) 17.4 % (13-45) 04/06/20 02:53 [place] % (Auto) 5.7 % (3-13) 04/06/20 02:53 Eos % (Auto) 0.6 % (0-6) 04/06/20 02:53 Baso % (Auto) 0.3 % (0-2) 04/06/20 02:53 Absolute Neuts (auto) 8.2 10^3/uL (1.7-8.2) 04/06/20 02:53 Absolute Lymphs (auto) 1.9 10^3/uL (0.5-4.7) 04/06/20 02:53 Absolute Monos (auto) 0.6 10^3/uL (0.1-1.4) 04/06/20 02:53 Absolute Eos (auto) 0.1 10^3/uL (0.0-0.6) 04/06/20 02:53 Absolute Basos (auto) 0.0 10^3/uL (0.0-0.2) 04/06/20 02:53 Seg Neutrophils % 76.0 % (42-78) 04/06/20 02:53 Urine Color STRAW 04/05/20 22:40 Urine Appearance CLEAR 04/05/20 22:40 Urine pH 6.0 (5.0-9.0) 04/05/20 22:40 Ur Specific [place] 1.004 04/05/20 22:40 Urine Protein NEGATIVE mg/dL (NEGATIVE) 04/05/20 22:40 Urine Glucose (UA) NEGATIVE mg/dL (NEGATIVE) 04/05/20 22:40 Urine Ketones NEGATIVE mg/dL (NEGATIVE) 04/05/20 22:40 Urine Blood SMALL (NEGATIVE) H 04/05/20 22:40 Urine Nitrite NEGATIVE (NEGATIVE) 04/05/20 22:40 Urine Bilirubin NEGATIVE (NEGATIVE) 04/05/20 22:40 Urine Urobilinogen NEGATIVE mg/dL (<2.0) 04/05/20 22:40 Ur Leukocyte Esterase LARGE (NEGATIVE) H 04/05/20 22:40 Urine Ascorbic Acid NEGATIVE (NEGATIVE) 04/05/20 22:40 Urine Opiates Screen NEGATIVE 04/05/20 22:40 Urine Methadone Screen NEGATIVE 04/05/20 22:40 Ur Barbiturates Screen NEGATIVE 04/05/20 22:40 Ur Phencyclidine Scrn NEGATIVE 04/05/20 22:40 Ur Amphetamines Screen NEGATIVE 04/05/20 22:40 U Benzodiazepines Scrn NEGATIVE 04/05/20 22:40 Urine Cocaine Screen NEGATIVE 04/05/20 22:40 U Marijuana (THC) Screen NEGATIVE 04/05/20 22:40 RPR NONREACTIVE (NONREACTIVE) 04/06/20 02:53 Blood Type B POSITIVE 04/06/20 02:53 Antibody Screen NEGATIVE 04/06/20 02:53 Plan Health Concerns: iron rich foods encouraged Plan of Treatment: d/c home, f/up with [facility] in 4 wks for PP check up Time Spent: Less than 30 Minutes
[2020-04-08] MEDS: FAMOTIDINE 20 MG TABLET PO SCH (11:14)
[2020-04-08] MEDS: SENNOSIDES/DOCUSATE 8.6-50 MG 1 EACH TABLET PO SCH (11:17)
[2020-04-08] MEDS: DOCUSATE SODIUM 100 MG CAPSULE PO SCH (11:17)
[2020-04-08] MEDS: FERROUS SULFATE 325 MG TABLET PO SCH (11:17)
[2020-04-08] MEDS: PRENATAL VITAMIN W DHA CAPSULE PO SCH (11:17)
== END 2020-04-08 14:32 | disposition home or self-care (01) | DRG 807 ==
LOC: LC 22:28 → LR 04-06 02:46 → EEVIPCON 04-06 02:46 → 2S 04-06 12:15
PROVIDERS: ADMIT Student in an Organized Health Care Education/Training Program; ATTEND Student in an Organized Health Care Education/Training Program
PROC: 10E0XZZ Delivery of Products of Conception, External Approach (ICD-10-PCS; principal; 2020-04-06)
DX: O99.824 Streptococcus B carrier state complicating childbirth (principal); Z37.0 Single live birth; Z20.828 Contact with and (suspected) exposure to other viral communicable diseases; O99.02 Anemia complicating childbirth; O99.344 Other mental disorders complicating childbirth; F41.9 Anxiety disorder, unspecified; O99.513 Diseases of the respiratory system complicating pregnancy, third trimester; J45.909 Unspecified asthma, uncomplicated; Z91.018 Allergy to other foods; Z87.891 Personal history of nicotine dependence; Z3A.39 39 weeks gestation of pregnancy
CPT/HCPCS: 1967; 36415; 80307; 81005; 85025; 85027; 86592; 86850; 86900; 86901; 94760; J2540; J2590; J2795; J3010; J3490